=== PATIENT | female | born 1985 | race Caucasian/White ===

== ENCOUNTER 2016-11-25 09:06 | Emergency (ER) | payer BC, OTHER ==
--- NOTE | ~2016-11-25 | CR230 ---
[facility] A Service of [facility] RADIOLOGY TEXT RESULTS PATIENT: LEANN BROWN LOCATION: SED : [birth year] UNIT #: [id number] AGE: [address]: Manuel French MD SEX: F ORDER DR: [id number] [place] [id number] E MR#: [id number] Acc #: [id number] NAME: LEANN BROWN : 1985 SEX: F STUDY DATE/TIME: 11/25/2016 0909 UNIT: SED ROOM: STUDY DESCRIPTION: CR Shoulder Min 2 View Rt Attending Physician: Manuel French M.D. Ordering Physician: Manuel French M.D. MEDICAL IMAGING REPORT This report is preliminary unless electronic signature is present. EXAM Right shoulder, 3 views, 11/25/2016, 0909 hours. CLINICAL HISTORY 30-year-old with a 3-week history of right shoulder pain and right neck pain. No known injury. COMPARISON None FINDINGS AP views in internal and external rotation with scapula Y-view demonstrates no fracture, dislocation, or soft tissue calcification. There is a very tiny spur from the coracoid. IMPRESSION No fracture, dislocation, or significant degenerative change. A tiny spur is noted at the coracoid. Dictated by... Julienne Wagner M.D. THIS IS AN ELECTRONICALLY VERIFIED REPORT Julienne Wagner M.D. at 11/25/2016 2:28 PM RVAINM/roselia TD: 11/25/2016 11:31 JOB #: [id number] MEDICAL IMAGING REPORT [facility] A Service [facility] RADIOLOGY TEXT RESULTS PATIENT: LEANN BROWN LOCATION: SED : [birth year] UNIT #: [id number] AGE: [address]: Manuel French MD SEX: F ORDER DR: Page 1 of 1
--- NOTE | ~2016-11-25 | CR58 ---
[facility]. [facility] A Service of [facility] [place] RADIOLOGY TEXT RESULTS PATIENT: LEANN BROWN LOCATION: SED : [birth year] UNIT #: [id number] AGE: [address]: Manuel French MD SEX: F ORDER DR: [id number] [address] [address] [id number] E MR#: [id number] Acc #: [id number] NAME: LEANN BROWN : 1985 SEX: F STUDY DATE/TIME: 11/25/2016 09:09 UNIT: SED ROOM: STUDY DESCRIPTION: CR Cervical Spine 2 or 3 Views Attending Physician: Manuel French M.D. Ordering Physician: Manuel French M.D. MEDICAL IMAGING REPORT This report is preliminary unless electronic signature is present. EXAM Cervical spine series 11/25/2016 09:09 hours HISTORY 30-year-old complaining of 3-week history of neck pain and right shoulder pain. No reported injury. COMPARISON None. FINDINGS AP, lateral and open mouth views demonstrate C1 through the top of T3. There is mild straightening of the cervical spine but no malalignment. There is no prevertebral soft tissue swelling. There is mild disc height loss C6-7 and C5-6. Facet joints are normal. Soft tissues are normal. IMPRESSION 1. Mild straightening of the cervical spine with no subluxation. 2. Minimal disc height loss at C5-6 and C6-7. No fracture seen. Dictated by... Julienne Wganer M.D. THIS IS AN ELECTRONICALLY VERIFIED REPORT Julienne Wagner M.D. at 11/25/2016 2:28 PM YOLIS/khalif TD: 11/25/2016 11:02 JOB #: [id number] MEDICAL IMAGING REPORT Page 1 of 1
[~2016-11-25 09:06] MED LIST: AUGMENTIN875 M1 PO; CLEOCIN HCL300 M1 PO; PERCOCET 7.5/321 TAB PO; PRENATAL1 TA1
== END 2016-11-25 10:14 | disposition home or self-care (01) ==
LOC: SED 09:06
DX: M62.838 Other muscle spasm (principal); F17.200 Nicotine dependence, unspecified, uncomplicated
CPT/HCPCS: 72040; 73030; 99284